=== PATIENT | male | born 1980 | race Caucasian/White ===

== ENCOUNTER 2017-04-12 23:17 | Emergency (ER) | payer BC, OTHER, SELFPAY ==
[~2017-04-12] VITALS: Ht 177.8 cm; Wt 88.2 kg
[2017-04-12 23:52] LABS: PATH.CAST-FLAG NOT PRESENT; SPERM-FLAG NOT PRESENT; SRC-FLAG NOT PRESENT; XTAL-FLAG NOT PRESENT; YLC-FLAG NOT PRESENT
[2017-04-12] MEDS ORDERED: morphine SULFATE 10 MG/ML, 1ML ONE (23:58)
[2017-04-12] MEDS ORDERED: KETOROLAC 30 MG/1 ML ONE (23:58)
[2017-04-12] MEDS ORDERED: ONDANSETRON 2MG/ML, 2ML ONE (23:58)
[2017-04-13] MEDS ORDERED: KETOROLAC 30 MG/1 ML IVPush ONE
[2017-04-13] MEDS ORDERED: SODIUM CHLORIDE 0.9% 1,000ML IVBOLUS ONE
[2017-04-13] MEDS ORDERED: ONDANSETRON 2MG/ML, 2ML IVPush ONE
[2017-04-13] MEDS ORDERED: MORPHINE SULFATE 4 MG/ML, 1ML IVPush PRN
[2017-04-13 00:08] VITALS: BP 122/62
[2017-04-13 00:09] LABS: HEMATOCRIT 44.7 % (39.2-51.8); HEMOGLOBIN 15.1 g/dL (13.7-18.0); WHITE BLOOD COUNT 10.6 x10^3/uL (3.4-10)
[2017-04-13 00:21] LABS: ASPARTATE AMINO TRANSFERASE 14 U/L (15-37); BLOOD UREA NITROGEN 24 mg/dL (7-18)
== END 2017-04-13 01:36 | disposition home or self-care (01) ==
LOC: ED 04-13 00:05
DX: N20.2 Calculus of kidney with calculus of ureter (principal)
CPT/HCPCS: 36415; 74176; 80053; 81001; 83690; 85025; 87086; 96361; 96374; 96375; 99285; J1885; J2405; J7030